=== PATIENT | female | born 1985 | race Two or more races ===

== ENCOUNTER 2023-03-06 09:58 | Outpatient (CLI) | payer OTHER | END 2023-03-06 09:59 | disposition home or self-care (01) | LOC: LAB 09:58 | PROVIDERS: ATTEND Obstetrics & Gynecology Obstetrics | DX: N95.0 Postmenopausal bleeding (principal); E11.9 Type 2 diabetes mellitus without complications; N95.1 Menopausal and female climacteric states; E22.0 Acromegaly and pituitary gigantism ==

== ENCOUNTER 2023-05-06 10:22 | Outpatient (CLI) | payer OTHER ==
[2023-05-06 11:12] LABS: HEMATOCRIT 34.1 % (36.0-45.00); HEMOGLOBIN 11.2 g/dL (12.0-15.00); MEAN CELL VOLUME 71.3 fL (80.00-100.00); MEAN CORPUSCULAR HEMOGLOBIN 23.4 pg (27.00-32.0); MEAN CORPUSCULAR HGB CONC 32.9 g/dl (32.0-36.0); PH,URINE 5.5 (5.0-8.0); PLATELET COUNT 241 K/uL (150-450); RED BLOOD COUNT 4.78 M/uL (4.00-6.00); RED CELL DISTRIBUTION WIDTH 15.8 % (11.5-14.5); URINE APPEARANCE Clear; URINE BILIRRUBIN Negative (NEGATIVE); URINE BLOOD Trace; URINE COLOR Yellow; URINE GLUCOSE Negative (NEGATIVE); URINE LEUKOCYTE Negative; URINE NITRATE Negative; URINE PROTEIN Negative (NEGATIVE); URINE UROBILINOGEN 0.2 E.U./dl
[2023-05-06 11:13] LABS: URINE BACTERIA 133.5 uL (0.0-1933); URINE EPITHELIAL CELLS 3.8 uL (0.0-38.8); URINE RBC 2.5 uL (0.0-20.8); URINE WBC 5.7 uL (0.0-23.2)
[2023-05-06 11:34] LABS: INR 1.05; PARTIAL THROMBOPLASTIN TIME 26.9 SECONDS (22.0-34.0)
[2023-05-06 12:24] LABS: ALBUMIN 3.6 gm/dL (3.4-5.0); BILIRUBIN TOTAL 0.32 mg/dL (0.3-1.2); CALCIUM 8.8 mg/dL (8.5-10.1); CREATININE SERUM 0.71 mg/dL (0.55-1.02); GFR 92.13; GLOBULINA 3.5 G/DL (2.4-3.5); POTASSIUM 3.8 mEq/L (3.5-5.1); T4 FREE 0.89 NG/ML (0.76-1.46); TOTAL PROTEIN 7.1 gm/dL (6.4-8.2); TSH 1.09 uIU/mL (0.358-3.74)
== END 2023-05-06 10:42 | disposition home or self-care (01) ==
LOC: LAB 10:22
PROVIDERS: ATTEND Obstetrics & Gynecology Obstetrics
DX: Z01.812 Encounter for preprocedural laboratory examination (principal); D64.9 Anemia, unspecified; N39.0 Urinary tract infection, site not specified; E03.8 Other specified hypothyroidism; E55.9 Vitamin D deficiency, unspecified; E10.11 Type 1 diabetes mellitus with ketoacidosis with coma; E78.00 Pure hypercholesterolemia, unspecified; E10.9 Type 1 diabetes mellitus without complications; R19.02 Left upper quadrant abdominal swelling, mass and lump; N92.1 Excessive and frequent menstruation with irregular cycle; R97.8 Other abnormal tumor markers; R10.2 Pelvic and perineal pain; R53.1 Weakness; N80.00 Endometriosis of the uterus, unspecified; L50.0 Allergic urticaria; L20.84 Intrinsic (allergic) eczema; L20.89 Other atopic dermatitis; J31.0 Chronic rhinitis

== ENCOUNTER 2024-05-11 10:17 | Outpatient (CLI) | payer OTHER ==
[2024-05-11 12:11] LABS: T4 FREE 0.87 NG/ML (0.76-1.46); TSH 0.967 uIU/mL (0.358-3.74)
[2024-05-14 10:10] LABS: INSULIN LEVELS 5.1 uIU/mL (2.6-24.9)
[2024-05-20 08:59] LABS: ANTI MULLERIAN HORMONE 0.6 ng/mL (.)
== END 2024-05-11 10:39 | disposition home or self-care (01) ==
LOC: LAB 10:17
PROVIDERS: ATTEND Obstetrics & Gynecology Obstetrics
DX: N95.0 Postmenopausal bleeding (principal); E03.9 Hypothyroidism, unspecified; E55.9 Vitamin D deficiency, unspecified